=== PATIENT | male | born 1945 | race Caucasian/White ===

== ENCOUNTER 2016-07-02 01:15 | Day surgery (SDC) | payer MEDICARE, OTHER ==
[~2016-07-02] VITALS: Ht 182.9 cm; Wt 106.6 kg
[~2016-07-02 01:15] MED LIST: ASPI-973 PO; ATOR20TA PO; DICY20TA10 PO; ISOS30TA4 PO; MULT1CAP33 PO; RANI150C4 PO
[2016-07-02] MEDS ORDERED: 0.9% Sodium Chloride 1,000 ML IV SCH (06:00)
[2016-07-02] MEDS ORDERED: Sodium Chloride LOK Flush 10 mL Syringe IV PRN (06:00)
[2016-07-02] MEDS ORDERED: fentaNYL-PF 50 mCg/mL 2 mL Inj IVPUSH PRN (06:00)
[2016-07-02] MEDS ORDERED: OMEP20CA11 PO (10:49)
[2016-07-02 10:51] VITALS: BP 125/77; PULSE 57; RESP 16; O2SAT 97
[2016-07-02 12:19] VITALS: BP 126/76; PULSE 47; RESP 12; O2SAT 95
[2016-07-02 12:27] VITALS: BP 128/72; PULSE 57; RESP 14; O2SAT 96
--- NOTE | 2016-07-02 19:37 | ENDO ---
[address] [address] ENDOSCOPY PROCEDURE PATIENT: KALEB CAMACHO : 1945 MR#: [id number] ADMIT: 07/02/2016 JOB ID: [id number] DATE OF SERVICE: 07/02/2016 OPERATION: Colonoscopy. PREOPERATIVE DIAGNOSIS: Abdominal pain and change of bowel habits. POSTOPERATIVE DIAGNOSES: 1. Sigmoid diverticulosis. 2. Small internal hemorrhoids. ANESTHESIA: Fentanyl 75 mcg, Versed 4 mg IV administered. COMPLICATIONS: None. BLOOD LOSS: Minimal. DESCRIPTION OF PROCEDURE: After risks and benefits explained to the patient, informed consent was obtained. After anesthesia administered, colonoscope was inserted from the rectum to the cecum. Mucosa carefully examined. Prep of the patient was excellent. After procedure was done, the scope was withdrawn and the procedure terminated. FINDINGS: Upon inspection of the anus, no masses, hemorrhoids, ulcers, or fissures that were seen. Throughout the entire examination, there was mild sigmoid diverticulosis. No polyps or masses were seen. Retroflexion showed small internal hemorrhoids. IMPRESSION: 1. Small internal hemorrhoids. 2. Diverticulosis. RECOMMENDATIONS: High-fiber diet. Follow up in GI clinic with Earlene Thorpe, as an outpatient as needed.
== END 2016-07-02 23:59 | disposition home or self-care (01) ==
LOC: END 01:15
PROVIDERS: ATTEND Internal Medicine Gastroenterology
DX: K57.30 Diverticulosis of large intestine without perforation or abscess without bleeding (principal); K64.8 Other hemorrhoids; R10.31 Right lower quadrant pain; R19.4 Change in bowel habit; K21.9 Gastro-esophageal reflux disease without esophagitis; I25.10 Atherosclerotic heart disease of native coronary artery without angina pectoris; E78.5 Hyperlipidemia, unspecified; Z95.1 Presence of aortocoronary bypass graft; Z79.82 Long term (current) use of aspirin
CPT/HCPCS: 45378; G0500; J2250; J3010; J7030